=== PATIENT | male | born 1980 | race Caucasian/White ===

== ENCOUNTER 2019-02-04 05:19 | Day surgery (SDC) | payer OTHER ==
[~2019-02-04] VITALS: Ht 180.3 cm; Wt 93.0 kg
[2019-02-04 06:51] VITALS: BP 119/61; Ht 180.3 cm; Wt 93.0 kg
--- NOTE | 2019-02-04 09:44 | NUR ---
OPA IN AIRWAY ON ADMIT
--- NOTE | 2019-02-04 09:56 | NUR ---
OPA OUT [id number]
[2019-02-04] MEDS ORDERED: Ancef 2 GM/Dextrose IVPB (10:00)
[2019-02-04] MEDS ORDERED: PEPCID PO (10:00)
[2019-02-04] MEDS ORDERED: Demerol IV (10:00)
[2019-02-04] MEDS ORDERED: ROBINUL PO (10:00)
[2019-02-04] MEDS ORDERED: Transderm-Scop 1.5MG TRANSDERM (10:01)
[2019-02-04] MEDS ORDERED: ZOFRAN INJ IV (10:01)
--- NOTE | 2019-02-04 10:27 | NUR ---
1020-REC'D FROM RR.AWAKE AND ALERT,VSS, IV PATENT TO RIGHT HAND AT KVO. CO'S AT BEDSIDE, CL IN EASY REACH,FULL LIQUID TRAY TO ROOM. DENCARO COMPLAINTS.
--- NOTE | 2019-02-04 11:01 | NUR ---
1105-DISCHARGE CRITERIA MET. REMOVED IV FROM RIGHT HAND WITH CATH INTACT. REVIEWED DISCHARGE PAPER WORK. SENT COPY WITH IM AND CO'S
--- NOTE | 2019-02-08 10:30 | OP ---
PATIENT NAME: TARYN CABRERA MEDICAL RECORD: [id number] :82 LOCATION:[facility] ADMISSION DATE: SURGEON: FREDI ART MD DATE OF OPERATION: 02/04/2019 PREOPERATIVE DIAGNOSIS: Upper back mass. POSTOPERATIVE DIAGNOSIS: Upper back lipoma. PROCEDURE: Excision of upper back lipoma. SURGEON: Fredi Art MD WRITER TECHNICAL PUBLICATIONS: None. BLOOD LOSS: Minimal. ANESTHESIA: General. COMPLICATIONS: None. This was an intermediate closure. The risks, possible complications and alternatives to the procedure were explained to the patient. He elects to proceed. OPERATIVE COURSE: The patient was conveyed to the operating room electively on 02/04/2019. General anesthesia was induced by the anesthesia staff. The patient was positioned prone. The back was sterilely prepped and draped. Through the use of double curvilinear incisions, I excised the skin and subcutaneous tissue overlying the lipomatous tissue. The lipomatous tissue was excised in its entirety. Subcutaneous flaps were created sharply. Meticulous hemostasis was achieved with electrocautery. The subdermis was approximated with interrupted 3-0 Vicryls. The skin was approximated with a running intracuticular 3-0 Vicryl. Benzoin and Steri-Strips were applied. The patient was then extubated and conveyed to the post-anesthesia care unit where he was in stable condition. He will be dismissed back to the correction. There is no need for him to follow up with me in the office unless he develops a complication related to this operative procedure. TRANSINT:[id number] Voice Confirmation ID: [id number] DOCUMENT ID: [id number] FREDI ART MD at 1030 CC: [id number] DICTATION DATE: 02/04/19 0959 NEWS CLIPPING CUTTER: 02/04/[address] [facility] 02/04/19 [place] [id number]
== END 2019-02-04 11:20 | disposition home or self-care (01) ==
LOC: D.OPS 05:19
PROVIDERS: ATTEND Surgery
DX: D17.1 Benign lipomatous neoplasm of skin and subcutaneous tissue of trunk (principal)